=== PATIENT | female | born 1970 | race Caucasian/White ===

== ENCOUNTER → 2019-04-20 00:01 | Outpatient (BNVA) | payer MEDICAID, SELFPAY | PROVIDERS: Family Provider Nurse Practitioner; Visit Provider Internal Medicine | DX: B19.20 Unspecified viral hepatitis C without hepatic coma (principal); Z86.010 Personal history of colon polyps; B18.2 Chronic viral hepatitis C | CPT/HCPCS: 80053; 85025 ==

== ENCOUNTER 2019-05-05 09:38 | Outpatient (CLI) | payer MEDICAID, SELFPAY ==
--- NOTE | 2019-05-05 10:15 | US_ITS ---
WS: [id number] RIGHT UPPER QUADRANT ULTRASOUND HISTORY: HEP C VIRUS INFECTION COMPARISON: 08/02/2009 Liver: 16.0 cm in length. Normal size and echogenicity with no intrahepatic dilatation. No mass. Gallbladder: Status post cholecystectomy. CBD: 4.5 cm Pancreas: Normal size and echogenicity. Right kidney: 8.3 cm in length. Mild atrophy and increased echogenicity of the RIGHT kidney. No obstr uction or mass. Aorta and IVC: Unremarkable. No ascites. US/US liver [id number] IMPRESSION: 1. Status post cholecystectomy. 2. Normal liver. 3. Mild RIGHT renal atrophy.
== END 2019-05-05 09:39 | disposition home or self-care (01) ==
LOC: US 09:39
PROVIDERS: Family Provider Nurse Practitioner; PCP Nurse Practitioner; Visit Provider Internal Medicine
DX: B19.20 Unspecified viral hepatitis C without hepatic coma (principal); N26.1 Atrophy of kidney (terminal); Z90.49 Acquired absence of other specified parts of digestive tract
CPT/HCPCS: 76705

== ENCOUNTER 2019-05-06 07:58 | Day surgery (SDC) | payer MEDICAID, SELFPAY ==
[2019-05-05 08:14] VITALS: BMI 33.3
[2019-05-06 08:19] VITALS: BP 128/94; PULSE 87; RESP 18; TEMP 36.5; O2SAT 96
--- NOTE | 2019-05-06 08:20 | ANES.PREANE2 ---
Pre-Anesthetic Assessment Pre-Anesthetic Assessment: Height/Weight: Height 1.63 m Weight 87.997 kg Temp Pulse Resp BP Pulse Ox 97.7 F 87 18 128/94 96 05/06/19 08:19 05/06/19 08:19 05/06/19 08:19 05/06/19 08:19 05/06/19 08:19 Preop Diagnosis: colon polyps Proposed Procedure: Operation Date: 05/06/19 09:15 Proposed Procedures p Colonoscopy 92121 Z86.010(Not Applicable) - Ilya Uriarte MD Was Beta Mac taken within 24 hours: N/A Last intake: Intake Last Liquid Date 05/05/19 Last Liquid Time 22:00 Last Solid Date 05/04/19 Social: Social History: Tobacco (4cig a day ) Exam: Pre-Anes Outpt Exam: alert, oriented x 3 and regular rate & rhythm Additional Exam Findings (including area of procedure): diminished lung sounds on right Lower. Airway: Submandibular: WNL Cervical ROM: WNL MP: 2 Dentition: False (top and bottom) History/ROS: No significant history except as noted and No significant complaints Pulmonary: Pulmonary: Asthma and COPD CV/HEM: CV/HEM: Arrythmia : : Chronic renal Insufficiency Hepatic: Hepatic: Hepatitis (hepatitis C) GI: GI: GERD Metabolic: Metabolic: None reported Musc/skel: Musc/skel: Lower Back Pain Neuropsych: Neuropsych: Anxiety and Depression Anesthetic Plan: ASA status: 2 Anesthesia: MAC PFSH Anesthesia PFSH: Medical History (Updated 04/20/19 @ 10:38 by Ilya Uriarte MD) Hepatitis C Social History (Updated 04/20/19 @ 10:10 by ANILA Conway) Smoking and tobacco status: current every day smoker Alcohol intake: former Marital status: / History of recent travel: No Current gender identity: Female Data Anesthesia Cardiac Studies: No Data to Display
[2019-05-06] MEDS: sodium chloride 0.9% 1,000 ML 30 ML (08:29)
--- NOTE | 2019-05-06 08:56 | W.PM.OPSUD ---
Surgery/Procedure H&P Update DATE OF PROCEDURE: May 06, 2019 DATE H&P PERFORMED: 04/20/19 PREOP DIAGNOSIS: colon polyps PLANNED PROCEDURE: Operation Date: 05/06/19 09:15 Proposed Procedures p Colonoscopy 02602 Z86.010(Not Applicable) - Ilya Uriarte MD
[2019-05-06 09:46] VITALS: BP 111/68; PULSE 87; RESP 16; TEMP 36.7; O2SAT 97
[2019-05-06 10:01] VITALS: BP 125/78; PULSE 80; RESP 18; TEMP 36.6; O2SAT 99
== END 2019-05-06 10:15 | disposition home or self-care (01) ==
PROVIDERS: Family Provider Nurse Practitioner; PCP Nurse Practitioner; Visit Provider Internal Medicine
PROC: 0DJD8ZZ Inspection of Lower Intestinal Tract, Via Natural or Artificial Opening Endoscopic (ICD-10-PCS; CPT 45378; principal; 2019-05-06 09:15)
DX: Z86.010 Personal history of colon polyps (principal); Z82.49 Family history of ischemic heart disease and other diseases of the circulatory system; Z83.3 Family history of diabetes mellitus; F17.210 Nicotine dependence, cigarettes, uncomplicated; B18.2 Chronic viral hepatitis C; J44.9 Chronic obstructive pulmonary disease, unspecified; K21.9 Gastro-esophageal reflux disease without esophagitis
CPT/HCPCS: 12345; 45378; J2704; J7030

== ENCOUNTER → 2019-05-09 10:57 | Outpatient (BNVA) | payer MEDICAID, SELFPAY | PROVIDERS: Family Provider Nurse Practitioner; PCP Nurse Practitioner; Visit Provider Psychiatry & Neurology Psychiatry | DX: F33.2 Major depressive disorder, recurrent severe without psychotic features (principal); F43.12 Post-traumatic stress disorder, chronic; F17.210 Nicotine dependence, cigarettes, uncomplicated | CPT/HCPCS: 99213 ==

== ENCOUNTER → 2019-05-12 14:05 | Outpatient (BNVA) | payer MEDICAID, SELFPAY | PROVIDERS: Family Provider Nurse Practitioner; PCP Nurse Practitioner; Visit Provider Internal Medicine | DX: B19.20 Unspecified viral hepatitis C without hepatic coma (principal) | CPT/HCPCS: 36415; 87902; 99398 ==

== ENCOUNTER 2019-06-28 10:55 | Outpatient (CLI) | payer MEDICAID, SELFPAY ==
[2019-06-30 12:56] LABS: HEP C RNA Viral Load Quant <1.18 NOT DETECTED Log IU/mL (NOT DETECTED); HEP C RNA Viral Load Quant <15 NOT DETECTED IU/mL (NOT DETECTED)
[2019-09-13 12:07] LABS: Bilirubin Urine Neg (NEGATIVE); Blood Urine Neg (Negative); Glucose Urine UA Norm (Normal); Ketones Urine Negative (Negative); Leukocyte Esterase Urine Negative (Negative); Nitrate Urine Negative (Negative); Protein Urine Neg (Negative); Urine Appearance Clear (CLEAR); Urine Color Straw (Yellow); Urobilinogen Urine Norm (Negative)
[2019-09-13 12:08] LABS: Add Urine Culture? No; Bacteria Urine TRACE; Squamous Epithelial Cell Urine RARE (0-5)
[2019-09-13 12:12] LABS: Albumin Level 4.6 g/dL (3.5-5.2); Anion Gap 15.4 (5-19); Blood Urea Nitrogen 21 mg/dL (6-20); Calcium 10.6 mg/dL (8.5-10.5); Carbon Dioxide 26 mmol/L (22-29); Chloride 103 mmol/L (98-107); Glomerular Filtration Rate 29.9 mL/min (90-130); Glucose 95 mg/dL (65-115); Phosphorus 3.8 mg/dL (2.5-4.5); Potassium 4.4 mmol/L (3.5-5.1); Sodium 140 mmol/L (136-145)
[2019-09-13 12:27] LABS: Creatinine Urine, Random 63 mg/dL (28-217)
[2019-09-13 12:29] LABS: Microalbum Creatinine Ratio Ur 16 mg/dL (0-20); Microalbumin Random Urine 1 ug/dL (0-20)
== END 2019-06-28 10:56 | disposition home or self-care (01) ==
LOC: LAB 10:58
PROVIDERS: Family Provider Nurse Practitioner; PCP Nurse Practitioner; Visit Provider Internal Medicine
DX: B19.20 Unspecified viral hepatitis C without hepatic coma (principal)
CPT/HCPCS: 36415; 87522

== ENCOUNTER 2019-07-29 16:22 | Emergency (ER) | payer MEDICAID, SELFPAY ==
[2019-07-29 17:08] VITALS: BP 129/76; PULSE 76; RESP 18; TEMP 36.7; O2SAT 97; BMI 31.7
[2019-07-29 18:07] LABS: Basophils % 0.4 %; Eosinophils # 0.2 10^3/uL (0.0-0.8); Eosinophils % 2.9 %; Hematocrit 36.2 % (37.0-47.0); Lymphocytes # 3.1 10^3/uL (0.8-4.8); Lymphocytes % 42.7 %; Mean Corpuscular HGB Conc 30.4 g/dL (30.0-36.0); Mean Corpuscular Hemoglobin 27.4 pg (28.0-34.0); Mean Platelet Volume 10.6 fL (7.4-10.4); Monocytes # 0.5 10^3/uL (0.2-0.9); Monocytes % 7.3 %; Neutrophils # 3.4 10^3/uL (1.8-7.7); Neutrophils % 46.6 %; Nucleated Red Blood Cells % 0 %; Platelet Count 249 10^3/cmm (130-400); Red Blood Count 4.02 10^6/uL (4.1-5.3); Red Cell Distribution Width 14.6 % (12.1-15.1); White Blood Count 7.3 10^3/uL (4.0-10.0)
[2019-07-29 18:28] LABS: Alanine Aminotransferase 14 U/L (0-33); Albumin Level 4.3 g/dL (3.5-5.2); Alkaline Phosphatase 127 IU/L (35-105); Anion Gap 14.7 (5-19); Aspartate Amino Transferase 17 U/L (0-32); Blood Urea Nitrogen 23 mg/dL (6-20); Calcium 9.6 mg/dL (8.5-10.5); Carbon Dioxide 27 mmol/L (22-29); Chloride 106 mmol/L (98-107); Globulin 2.3 g/dL (1.3-4.6); Glomerular Filtration Rate 37.1 mL/min (90-130); Glucose 94 mg/dL (65-115); Magnesium 2.2 mg/dL (1.7-2.3); Osmolality Calculated 294 mOsm/kg (285-295); Phosphorus 3.1 mg/dL (2.5-4.5); Potassium 3.7 mmol/L (3.5-5.1); Sodium 144 mmol/L (136-145); Total Bilirubin 0.2 mg/dL (0.15-1.2); Total Protein 6.6 g/dL (6.6-8.7)
== END 2019-07-29 18:45 | disposition left against medical advice (07) ==
LOC: ER 17:19
PROVIDERS: Physician Assistant; Emergency Provider Emergency Medicine; PCP Nurse Practitioner
DX: Z53.21 Procedure and treatment not carried out due to patient leaving prior to being seen by health care provider (principal)
CPT/HCPCS: 36415; 80053; 83735; 84100; 85025; 99281

== ENCOUNTER → 2019-08-08 08:29 | Outpatient (BNVA) | payer MEDICAID, SELFPAY | PROVIDERS: PCP Nurse Practitioner; Visit Provider Psychiatry & Neurology Psychiatry | DX: F33.2 Major depressive disorder, recurrent severe without psychotic features (principal); F43.12 Post-traumatic stress disorder, chronic; F17.200 Nicotine dependence, unspecified, uncomplicated; F12.21 Cannabis dependence, in remission; F15.21 Other stimulant dependence, in remission | CPT/HCPCS: 99213 ==

== ENCOUNTER 2019-09-13 11:27 | Outpatient (CLI) | payer MEDICAID, SELFPAY | END 2019-09-13 11:28 | disposition home or self-care (01) | LOC: LAB 11:31 | PROVIDERS: PCP Nurse Practitioner; Visit Provider Internal Medicine Nephrology | DX: N18.4 Chronic kidney disease, stage 4 (severe) (principal) | CPT/HCPCS: 36415; 80069; 81001; 82044 ==

== ENCOUNTER → 2019-10-31 09:48 | Outpatient (BNVA) | payer MEDICAID, SELFPAY | PROVIDERS: PCP Nurse Practitioner; Visit Provider Psychiatry & Neurology Psychiatry | DX: F43.12 Post-traumatic stress disorder, chronic (principal); F33.2 Major depressive disorder, recurrent severe without psychotic features; F15.21 Other stimulant dependence, in remission; F12.21 Cannabis dependence, in remission; F17.200 Nicotine dependence, unspecified, uncomplicated; F41.1 Generalized anxiety disorder | CPT/HCPCS: 99213 ==

== ENCOUNTER → 2020-02-14 07:51 | Outpatient (BNVA) | payer MEDICAID, SELFPAY | PROVIDERS: PCP Nurse Practitioner; Visit Provider Psychiatry & Neurology Psychiatry | DX: F43.12 Post-traumatic stress disorder, chronic (principal); F33.2 Major depressive disorder, recurrent severe without psychotic features; F15.21 Other stimulant dependence, in remission; F12.21 Cannabis dependence, in remission; F17.200 Nicotine dependence, unspecified, uncomplicated | CPT/HCPCS: 74018; 80053; 81000; 85025; 99214 ==

== ENCOUNTER 2020-02-16 09:47 | Outpatient (CLI) | payer MEDICAID, SELFPAY ==
--- NOTE | 2020-02-16 09:52 | XRR_ITS ---
PROCEDURE INFORMATION: Exam: XR Abdomen, 1 View Exam date and time: 02/16/2020 9:53 AM Age: 49 years old Clinical indication: Condition or disease; Kidney or ureter condition; Other: Stone-not specified; Prior surgery; Surgery type: Choley, c section TECHNIQUE: Imaging protocol: XR of the abdomen. Views: Frontal supine view of the abdomen. 1 View. COMPARISON: CR XR KUB [id number] 02/14/2020 12:07 PM FINDINGS: Gastrointestinal tract: Normal. No bowel dilation. There is moderate colonic fecal stasis present in the ascending colon transverse colon, and sigmoid colon. Evidence of cholecystectomy is seen Organs: There is a 4.6 mm caliceal stone in the lower pole collecting system of the left kidney Bones/joints: There is osteoarthritis in the lumbar spine. Metallic arthroplasty is present in the right hip. XR/XR KUB [id number] IMPRESSION: 1. No acute GI abnormality. 2. Moderate colonic fecal stasis 3. Metallic right hip arthroplasty in good position 4. Lumbar spine osteoarthritis
== END 2020-02-16 09:48 | disposition home or self-care (01) ==
LOC: RAD 09:49
PROVIDERS: PCP Nurse Practitioner; Visit Provider Urology
DX: N20.0 Calculus of kidney (principal); K59.89 Other specified functional intestinal disorders; Z96.641 Presence of right artificial hip joint; M47.816 Spondylosis without myelopathy or radiculopathy, lumbar region
CPT/HCPCS: 74018; 81003

== ENCOUNTER 2020-02-27 11:56 | Outpatient (CLI) | payer MEDICAID, SELFPAY ==
[2020-02-27 12:40] LABS: Basophils % 0.7 %; Eosinophils # 0.2 10^3/uL (0.0-0.8); Eosinophils % 2.5 %; Hematocrit 40.5 % (37.0-47.0); Hemoglobin 12.3 g/dL (11.5-15.3); Lymphocytes # 2.2 10^3/uL (0.8-4.8); Lymphocytes % 37.5 %; Mean Corpuscular HGB Conc 30.4 g/dL (30.0-36.0); Mean Corpuscular Hemoglobin 28.1 pg (28.0-34.0); Mean Corpuscular Volume 92.5 fL (81-99); Mean Platelet Volume 11.1 fL (7.4-10.4); Monocytes # 0.4 10^3/uL (0.2-0.9); Neutrophils # 3.07 10^3/uL (1.8-7.7); Neutrophils % 52.1 %; Nucleated Red Blood Cells % 0 %; Platelet Count 229 10^3/cmm (130-400); Red Blood Count 4.38 10^6/uL (4.1-5.3); Red Cell Distribution Width 14.6 % (12.1-15.1); White Blood Count 5.9 10^3/uL (4.0-10.0)
[2020-02-27 13:12] LABS: Calcium 9.7 mg/dL (8.5-10.5); Parathyroid Hormone 64.5 pg/mL (15-65)
[2020-02-27 13:13] LABS: 25 Hydroxy Vitamin D 43 ng/mL (30-100); Albumin Level 4.2 g/dL (3.5-5.2); Blood Urea Nitrogen 12 mg/dL (6-20); Calcium 9.8 mg/dL (8.5-10.5); Carbon Dioxide 27 mmol/L (22-29); Chloride 105 mmol/L (98-107); Glomerular Filtration Rate 34.3 mL/min (90-130); Glucose 72 mg/dL (65-115); Phosphorus 3.1 mg/dL (2.5-4.5); Sodium 141 mmol/L (136-145)
[2020-02-27 13:15] LABS: Anion Gap 13.1 (5-19); Potassium 4.1 mmol/L (3.5-5.1)
== END 2020-02-27 11:57 | disposition home or self-care (01) ==
LOC: LAB 11:58
PROVIDERS: PCP Family Medicine; Visit Provider Nurse Practitioner Family
DX: N18.4 Chronic kidney disease, stage 4 (severe) (principal)
CPT/HCPCS: 36415; 80069; 82306; 82310; 83970; 85025

== ENCOUNTER → 2020-03-05 14:56 | Outpatient (BNVA) | payer MEDICAID, SELFPAY | PROVIDERS: PCP Family Medicine; Visit Provider Internal Medicine | DX: B19.20 Unspecified viral hepatitis C without hepatic coma (principal) | CPT/HCPCS: 87522 ==

== ENCOUNTER → 2020-05-08 08:55 | Outpatient (BNVA) | payer MEDICAID, SELFPAY | PROVIDERS: PCP Family Medicine; Visit Provider Psychiatry & Neurology Psychiatry | DX: F43.12 Post-traumatic stress disorder, chronic (principal); F33.2 Major depressive disorder, recurrent severe without psychotic features; F17.200 Nicotine dependence, unspecified, uncomplicated; F12.21 Cannabis dependence, in remission; F15.21 Other stimulant dependence, in remission | CPT/HCPCS: 99213 ==

== ENCOUNTER → 2020-08-13 15:14 | Outpatient (BNVA) | payer MEDICAID, SELFPAY | PROVIDERS: PCP Family Medicine; Visit Provider Psychiatry & Neurology Psychiatry | DX: F33.2 Major depressive disorder, recurrent severe without psychotic features (principal); F43.12 Post-traumatic stress disorder, chronic; F15.21 Other stimulant dependence, in remission; F12.21 Cannabis dependence, in remission; F17.200 Nicotine dependence, unspecified, uncomplicated | CPT/HCPCS: 99213 ==

== ENCOUNTER 2020-08-22 13:40 | Outpatient (CLI) | payer MEDICAID, SELFPAY ==
[2020-08-22 14:20] LABS: Basophils % 0.5 %; Eosinophils # 0.2 10^3/uL (0.0-0.8); Eosinophils % 2.3 %; Hematocrit 39.3 % (37.0-47.0); Hemoglobin 12.2 g/dL (11.5-15.3); Lymphocytes # 2.5 10^3/uL (0.8-4.8); Lymphocytes % 38.2 %; Mean Corpuscular Hemoglobin 28.7 pg (28.0-34.0); Mean Corpuscular Volume 92.5 fL (81-99); Mean Platelet Volume 11.3 fL (7.4-10.4); Monocytes # 0.4 10^3/uL (0.2-0.9); Monocytes % 6.5 %; Neutrophils # 3.37 10^3/uL (1.8-7.7); Neutrophils % 52.2 %; Nucleated Red Blood Cells % 0 %; Platelet Count 213 10^3/cmm (130-400); Red Blood Count 4.25 10^6/uL (4.1-5.3); Red Cell Distribution Width 14.9 % (12.1-15.1); White Blood Count 6.5 10^3/uL (4.0-10.0)
[2020-08-22 14:50] LABS: Albumin Level 4.1 g/dL (3.5-5.2); Anion Gap 12.8 (5-19); Blood Urea Nitrogen 10 mg/dL (6-20); Calcium 9.1 mg/dL (8.5-10.5); Carbon Dioxide 27 mmol/L (22-29); Chloride 105 mmol/L (98-107); Glomerular Filtration Rate 43.4 mL/min (90-130); Glucose 109 mg/dL (65-115); Phosphorus 2.8 mg/dL (2.5-4.5); Potassium 3.8 mmol/L (3.5-5.1); Sodium 141 mmol/L (136-145)
[2020-08-22 14:52] LABS: Calcium 9.2 mg/dL (8.5-10.5)
[2020-08-22 15:07] LABS: Creatinine Urine, Random 38 mg/dL (28-217)
[2020-08-22 15:09] LABS: Microalbum Creatinine Ratio Ur 26 mg/dL (0-20); Microalbumin Random Urine 1 ug/dL (0-20)
[2020-08-22 17:46] LABS: Parathyroid Hormone 52.7 pg/mL (15-65)
== END 2020-08-22 13:41 | disposition home or self-care (01) ==
LOC: LAB 13:47
PROVIDERS: PCP Family Medicine; Visit Provider Internal Medicine Nephrology
DX: N18.32 Chronic kidney disease, stage 3b (principal)
CPT/HCPCS: 80069; 82044; 82310; 83970; 85025

== ENCOUNTER → 2020-11-08 09:08 | Outpatient (BNVA) | payer MEDICAID, SELFPAY | PROVIDERS: PCP Family Medicine; Visit Provider Psychiatry & Neurology Psychiatry | DX: F43.12 Post-traumatic stress disorder, chronic (principal); F33.2 Major depressive disorder, recurrent severe without psychotic features; F12.21 Cannabis dependence, in remission; F15.21 Other stimulant dependence, in remission; F17.200 Nicotine dependence, unspecified, uncomplicated | CPT/HCPCS: 99213 ==

== ENCOUNTER → 2021-02-07 08:49 | Outpatient (BNVA) | payer MEDICAID, SELFPAY | PROVIDERS: PCP Family Medicine; Visit Provider Psychiatry & Neurology Psychiatry | DX: F43.12 Post-traumatic stress disorder, chronic (principal); F33.2 Major depressive disorder, recurrent severe without psychotic features; F17.210 Nicotine dependence, cigarettes, uncomplicated; F15.21 Other stimulant dependence, in remission; F12.21 Cannabis dependence, in remission; F17.200 Nicotine dependence, unspecified, uncomplicated | CPT/HCPCS: 99213 ==

== ENCOUNTER 2021-02-18 09:13 | Outpatient (CLI) | payer MEDICAID, SELFPAY ==
--- NOTE | 2021-02-18 09:15 | XR_ITS ---
WS: [id number] XR KUB [id number] REASON FOR EXAM: KIDNEY STONE FINDINGS: Calculus/calculi in the lower pole of the left kidney unchanged compared to the previous examination of 02/16/2020. This calculus was present on a CT scan of the abdomen 09/19/2016, unchanged. No other urinary tract calculi. Status post cholecystectomy. No other significant abdominal abnormality. Pelvis unremarkable. XR/XR KUB [id number] IMPRESSION: Stable calculus lower pole left kidney.
== END 2021-02-18 09:14 | disposition home or self-care (01) ==
LOC: RAD 09:15
PROVIDERS: PCP Family Medicine; Visit Provider Urology
DX: N20.0 Calculus of kidney (principal); R10.9 Unspecified abdominal pain
CPT/HCPCS: 74018; 81003

== ENCOUNTER 2021-02-27 13:33 | Outpatient (CLI) | payer MEDICAID, SELFPAY ==
--- NOTE | 2021-02-27 13:37 | XR_ITS ---
WS: [id number] LUMBAR SPINE TECHNIQUE: 3 views of the lumbar spine CLINICAL INFORMATION: M54.50 - Low back pain, unspecified COMPARISON: None. FINDINGS: Five iuf-kuh-jplymio lumbar vertebral bodies. Mild lumbar curve convex right. Cholecystectomy clips. Moderate spondylitic changes. Postoperative changes right KIEL. Disc space narrowing worse L4-L5 and L 5-S1 with hypertrophic changes. Aortic calcification. No acute compression fractures. Moderate facet arthropathy L5-S1. Moderate L5-S1 bony foraminal narrowing. XR/XR lumbar spine 2-3V* [id number] IMPRESSION: 1. Mild lumbar curve convex right. No acute compression fractures. 2. Disc space narrowing worse L4-L5 and L5-S1 with hypertrophic changes. 3. Moderate L5-S1 bony foraminal narrowing.
--- NOTE | 2021-02-27 13:37 | XR_ITS ---
WS: [id number] HIP WITH PELVIS RIGHT TECHNIQUE: 3 views of the right hip with pelvis CLINICAL INFORMATION: M25.551 - Pain in right hip COMPARISON: None. FINDINGS: Postoperative changes right KIEL. Hardware appears well seated. Normal femoral shaft. Normal pubic mandy i. No acute fractures. No evidence of hardware loosening. XR/XR hip RT 2-3V wo/w pel* [id number] IMPRESSION: Satisfactory right KIEL. Tonnis classification: NA
== END 2021-02-27 13:34 | disposition home or self-care (01) ==
PROVIDERS: PCP Family Medicine; Visit Provider Family Medicine
DX: M25.551 Pain in right hip (principal); M54.50 Low back pain, unspecified; Z96.641 Presence of right artificial hip joint
CPT/HCPCS: 72100; 73502

== ENCOUNTER → 2021-05-24 07:23 | Outpatient (BNVA) | payer MEDICAID, SELFPAY | PROVIDERS: PCP Family Medicine; Visit Provider Psychiatry & Neurology Psychiatry | DX: F43.12 Post-traumatic stress disorder, chronic (principal); F33.2 Major depressive disorder, recurrent severe without psychotic features; F12.21 Cannabis dependence, in remission; F17.200 Nicotine dependence, unspecified, uncomplicated; F15.21 Other stimulant dependence, in remission | CPT/HCPCS: 99213 ==

== ENCOUNTER 2021-05-28 14:36 | Outpatient (CLI) | payer MEDICAID, SELFPAY ==
[2021-05-28] MEDS: iodixanol 320 mg/mL 100mL Btl IV (14:54)
--- NOTE | 2021-05-28 15:00 | CT_ITS ---
WS: [id number] CT LUMBAR SPINE WITH CONTRAST. HISTORY: M54.50 - Low back pain, unspecified Technique: All CT scans at [facility] use at least one of these dose optimization techniques: automated exposure control; mA and/or kV adjustment per patient size (includes targeted exams where dose is matched to clinical indication); or iterative reconstruction. DLP: 1276.90 mGy.cm COMPARISON: Lumbar spine radiograph 02/27/2021. Contrast: Posterior alignment is normal. Advanced degenerative disc disease and narrowing and vacuum disc pheno mariusz at L4-5 and L5-S1. No fractures. No areas of abnormal enhancement. No soft tissue tumor or mass . L2-3: Mild asymmetric disc bulging with no high-grade stenosis. L3-4: Marked annular disc bulging with asymmetric bulging. Disc contact on the ventral thecal sac. Th ere is mild central and subarticular recess narrowing. L4-5: Diffuse annular disc bulging with osteophytic ridging. Osteophytes extend into the foramen bila terally. Significant osteophyte encroachment by up to 8 mm into the foramen bilaterally. Osteophytes contribute to mild bilateral foraminal stenosis. L5-S1: Diffuse osteophytic ridging. Osteophytes extend into the foramina bilaterally but greatest on the LEFT mild bilateral foraminal stenosis, RIGHT greater than LEFT. Well-circumscribed cyst upper pole LEFT kidney measures 2.6 cm. Mild atherosclerosis of the visualize d abdominal aorta. There are a few adjacent small lymph nodes. No adenopathy. CT/CT lumbar spine w con [id number] IMPRESSION: 1. Advanced degenerative disc disease at L4-5 and L5-S1. 2. Significant osteophyte encroachment into the foramen of L4-5 and L5-S1 with encroachment upon the nerve roots. 3. LEFT renal cyst. 4. No enhancing masses identified.
== END 2021-05-28 14:37 | disposition home or self-care (01) ==
LOC: RAD 14:38
PROVIDERS: PCP Family Medicine; Visit Provider Family Medicine
DX: M51.36 Other intervertebral disc degeneration, lumbar region (principal); M51.37 Other intervertebral disc degeneration, lumbosacral region; Q61.00 Congenital renal cyst, unspecified
CPT/HCPCS: 72132

== ENCOUNTER → 2021-06-11 13:40 | Outpatient (BNVA) | payer MEDICAID, SELFPAY | PROVIDERS: PCP Family Medicine; Visit Provider Orthopaedic Surgery | DX: M48.062 Spinal stenosis, lumbar region with neurogenic claudication (principal); Z98.890 Other specified postprocedural states | CPT/HCPCS: 99203; 99204; 99213; 99214 ==

== ENCOUNTER → 2021-06-17 10:30 | Outpatient (BNVA) | payer MEDICAID, SELFPAY | PROVIDERS: PCP Family Medicine; Referring Provider Orthopaedic Surgery; Visit Provider Anesthesiology Pain Medicine | DX: M48.062 Spinal stenosis, lumbar region with neurogenic claudication (principal); M51.16 Intervertebral disc disorders with radiculopathy, lumbar region; M51.17 Intervertebral disc disorders with radiculopathy, lumbosacral region; M79.604 Pain in right leg; M79.605 Pain in left leg; Z87.891 Personal history of nicotine dependence | CPT/HCPCS: 99204 ==

== ENCOUNTER → 2021-07-04 13:12 | Outpatient (BNVA) | payer MEDICAID, SELFPAY | PROVIDERS: PCP Family Medicine; Visit Provider Anesthesiology Pain Medicine | DX: M54.16 Radiculopathy, lumbar region (principal); M48.062 Spinal stenosis, lumbar region with neurogenic claudication; Z87.891 Personal history of nicotine dependence | CPT/HCPCS: 64483; 64484; J1100; J3490 ==

== ENCOUNTER → 2021-07-18 09:44 | Outpatient (BNVA) | payer MEDICAID, SELFPAY | PROVIDERS: PCP Family Medicine; Visit Provider Anesthesiology Pain Medicine | DX: M48.062 Spinal stenosis, lumbar region with neurogenic claudication (principal); M51.16 Intervertebral disc disorders with radiculopathy, lumbar region; M47.816 Spondylosis without myelopathy or radiculopathy, lumbar region; M79.604 Pain in right leg; M79.605 Pain in left leg; Z87.891 Personal history of nicotine dependence | CPT/HCPCS: 99214 ==

== ENCOUNTER 2021-07-22 16:35 | Outpatient (CLI) | payer MEDICAID, SELFPAY ==
--- NOTE | 2021-07-22 16:51 | MR_ITS ---
WS: [id number] MRI LUMBAR SPINE NONCONTRAST HISTORY: M54.50 - Low back pain, unspecified COMPARISON: CT 05/28/2021 TECHNIQUE: Sagittal and axial multisequence imaging is submitted. Marked thoracic curvature and scoliosis. Mild straightening of the normal lumbar lordosis. Severe degenerative disc disease at L4-5 and moderate at L5-S1. No fracture or marrow edema. Conus terminates normally at L1-2 disc level. L1-L2: Normal. L2-L3: Normal. L3-L4: Moderate diffuse annular disc bulging with moderate ligamentum flavum hypertrophy and facet ar thritis. Diffuse annular disc bulging is encroaching into the foramina. There is mild encroachment an d narrowing of the subarticular recesses. No significant foraminal stenosis. L4-L5: Marked annular disc bulging and osteophytic ridging. Disc and osteophyte encroachment into the subarticular recesses and bilateral foramina. There is mild central, bilateral subarticular recess a nd foraminal stenosis. Most significant encroachment upon the traversing L5 nerve roots bilaterally. Moderate ligamentum flavum hypertrophy and facet arthritis. L5-S1: Diffuse asymmetric disc bulging and osteophytic ridging. Disc and osteophyte encroachment upon the central canal and foramina. Focal LEFT subarticular and foraminal disc protrusion resulting in s lightly greater stenosis on the LEFT. Mild bilateral foraminal narrowing with disc contacting the und ersurface of the exiting L5 nerve roots. LEFT renal cyst 1.8 cm. MR/MR lumbar spine wo con* [id number] IMPRESSION: 1. Severe degenerative disc disease at L4-5 and moderate at L5-S1. 2. Mild central, bilateral subarticular recess and foraminal stenosis at L4-5. Disc and osteophyte encroachment upon the traversing L5 nerve roots. 3. Bilateral mild foraminal stenosis with disc contacting the undersurface of the exiting L5 nerve roots at the L5-S1 level. Diffuse annular disc bulging. 4. No high-grade central stenosis.
== END 2021-07-22 16:36 | disposition home or self-care (01) ==
LOC: RAD 16:35
PROVIDERS: PCP Family Medicine; Visit Provider Orthopaedic Surgery
DX: M54.50 Low back pain, unspecified (principal); M51.37 Other intervertebral disc degeneration, lumbosacral region
CPT/HCPCS: 72148

== ENCOUNTER → 2021-07-29 14:23 | Outpatient (BNVA) | payer MEDICAID, SELFPAY | PROVIDERS: PCP Family Medicine; Visit Provider Anesthesiology Pain Medicine | DX: M48.062 Spinal stenosis, lumbar region with neurogenic claudication (principal); Z87.891 Personal history of nicotine dependence; M47.816 Spondylosis without myelopathy or radiculopathy, lumbar region | CPT/HCPCS: 64493; 64494; 64495; J3490 ==

== ENCOUNTER → 2021-08-13 09:38 | Outpatient (BNVA) | payer MEDICAID, SELFPAY | PROVIDERS: PCP Family Medicine; Visit Provider Anesthesiology Pain Medicine | DX: M48.062 Spinal stenosis, lumbar region with neurogenic claudication (principal); M51.16 Intervertebral disc disorders with radiculopathy, lumbar region; M47.816 Spondylosis without myelopathy or radiculopathy, lumbar region; M79.604 Pain in right leg; M79.605 Pain in left leg; Z87.891 Personal history of nicotine dependence | CPT/HCPCS: 99213 ==

== ENCOUNTER → 2021-08-20 07:18 | Outpatient (BNVA) | payer MEDICAID, SELFPAY | PROVIDERS: PCP Family Medicine; Visit Provider Psychiatry & Neurology Psychiatry | DX: F43.12 Post-traumatic stress disorder, chronic (principal); F33.2 Major depressive disorder, recurrent severe without psychotic features; F12.21 Cannabis dependence, in remission; F17.200 Nicotine dependence, unspecified, uncomplicated; H10.9 Unspecified conjunctivitis; F15.21 Other stimulant dependence, in remission | CPT/HCPCS: 99214 ==

== ENCOUNTER 2021-08-20 14:59 | Outpatient (CLI) | payer MEDICAID, SELFPAY ==
[2021-08-20 18:32] LABS: Albumin Level 4.3 g/dL (3.5-5.2); Anion Gap 15.6 (5-19); Blood Urea Nitrogen 15 mg/dL (6-20); Calcium 9.7 mg/dL (8.5-10.5); Carbon Dioxide 25 mmol/L (22-29); Chloride 103 mmol/L (98-107); Glomerular Filtration Rate 43.2 mL/min (90-130); Glucose 86 mg/dL (65-115); Phosphorus 3.5 mg/dL (2.5-4.5); Potassium 3.6 mmol/L (3.5-5.1); Sodium 140 mmol/L (136-145)
[2021-08-20 18:45] LABS: Parathyroid Hormone 49.2 pg/mL (15-65)
[2021-08-20 18:49] LABS: Calcium 9.6 mg/dL (8.5-10.5)
[2021-08-26 09:47] LABS: Vit D 1,25 (Oh)2, Total 28 pg/mL (18-72); Vit D2 1,25 (Oh)2 <8 pg/mL; Vit D3 1,25 (Oh)2 28 pg/mL
== END 2021-08-20 15:00 | disposition home or self-care (01) ==
LOC: LAB 15:04
PROVIDERS: PCP Family Medicine; Visit Provider Internal Medicine Nephrology
DX: N18.31 Chronic kidney disease, stage 3a (principal)
CPT/HCPCS: 36415; 80069; 82310; 82652; 83970; 86140

== ENCOUNTER → 2021-08-29 08:42 | Outpatient (BNVA) | payer MEDICAID, SELFPAY | PROVIDERS: PCP Family Medicine; Visit Provider Orthopaedic Surgery | DX: M48.062 Spinal stenosis, lumbar region with neurogenic claudication (principal) | CPT/HCPCS: 99214 ==

== ENCOUNTER → 2021-10-01 16:56 | Outpatient (BNVA) | payer MEDICAID, SELFPAY | PROVIDERS: PCP Family Medicine; Visit Provider Family Medicine | DX: Z01.818 Encounter for other preprocedural examination (principal) | CPT/HCPCS: 80053; 85025 ==

== ENCOUNTER → 2021-10-02 09:45 | Outpatient (BNVA) | payer MEDICAID, SELFPAY | PROVIDERS: PCP Family Medicine; Visit Provider Family Medicine | DX: Z01.818 Encounter for other preprocedural examination (principal) | CPT/HCPCS: 71046 ==

== ENCOUNTER 2021-10-18 14:22 | Inpatient (IN) | payer MEDICAID, SELFPAY ==
[2021-10-15 10:31] VITALS: BMI 27.9
--- NOTE | 2021-10-15 13:44 | ANES.PREANE2 ---
Pre-Anesthetic Assessment Height/Weight: Height 1.63 m Weight 73.936 kg Preop Diagnosis: facet arthropaty, DDD with neurogenic claudication Operation Date: 10/18/21 08:30 Proposed Procedures p Posterior Lumbar Interbody Fusion L3 TO PELVIC PLIF @L5-S1 DECOM L3-S1 [id number](Not Applicable) - DO reena Henson Lumbar Spine Decompression(Not Applicable) - Shubham Christianson DO Familial anesthetic complications: none Was Beta Mac taken within 24 hours: N/A Was Clonidine taken within 24 hours: N/A Social Tobacco Exam alert, oriented x 3 and regular rate & rhythm wheezing b/l denies recent URI/LRI Airway Submandibular: within normal limits Cervical ROM: within normal limits Mallampati: Class I Comments: Comments: missing teeth Pulmonary Chronic Obstructive Pulmonary Disease and Sleep Apnea (uses CPAP) CV/HEM METS > 4 Chronic Renal Insufficiency Urolithiasis Hepatic Hepatitis (C) GI Gastroesophageal Reflux Disease (WC) and Hiatal Hernia Musc/skel Lower Back Pain and Osteoarthritis/DJD Neuropsych Neuropathy PTSD Hx of amphetamine, marijuana abuse Anesthetic Plan ASA status: 3 Anesthesia: Anesthesia Evaluation and General Other: We discussed risk and benefits of general anesthesia including PONV, sore throat (sometimes severe), corneal abrasion, positioning and peripheral nerve injuries, life threatening allergic reaction, post operative ICU admission requiring prolonged intubation, aspiration, stroke, heart attack, , blindness, and rare incidences of recall. Patient consents to proceed with general anesthesia. Plan GETA, 2 PIV, arterial line Risk of > 500 ml blood loss (7ml/kg in children): No Medications/Allergies Home Medications Medication Instructions Recorded Confirmed Last Taken Type albuterol sulfate 90 mcg/actuation 2 puff inhalation Q6H PRN 04/03/21 10/15/21 Unknown Rx aerosol inhaler (ProAir HFA) shortness of breath or wheezing #18 grams naloxone 4 mg/actuation nasal spray 4 mg intranasal Q2M PRN opioid 05/23/21 10/15/21 Unknown Rx overdose #2 ea cetirizine 10 mg tablet (Zyrtec) 10 mg PO DAILY 30 days #30 tabs 07/03/21 10/15/21 Unknown Rx montelukast 10 mg tablet 10 mg PO DAILY #30 tabs 07/03/21 10/15/21 Unknown Rx (Singulair) omeprazole 40 mg capsule,delayed 40 mg PO DAILY #30 caps 07/03/21 10/15/21 Unknown Rx release bupropion HCl 150 mg tablet,12 hr 150 mg PO BID #60 tabs 08/20/21 10/15/21 Unknown Rx sustained-release (Wellbutrin SR) lamotrigine 150 mg tablet 150 mg PO BID #60 tabs 08/20/21 10/15/21 Unknown Rx quetiapine 100 mg tablet (Seroquel) 100 mg PO .HS #30 tabs 08/20/21 10/15/21 Unknown Rx acetaminophen 300 mg-codeine 60 mg 1 tab PO Q8H #45 tabs 08/22/21 10/15/21 Unknown Rx tablet ergocalciferol (vitamin D2) 50 mcg 50 mcg PO DAILY 09/26/21 10/15/21 Unknown History (2,000 unit) capsule Allergies Allergy/AdvReac Type Severity Reaction Status Date / Time escitalopram [From Lexapro] AdvReac Intermediate ALGY-Hives Verified 10/15/21 10:28 [facility] Anesthesia Medical History Chronic kidney disease DDD (degenerative disc disease) Environmental and seasonal allergies GERD (gastroesophageal reflux disease) Heart murmur Hepatitis C Hiatal hernia Kidney stone Left anterior knee pain Psychiatric care Scoliosis Urolithiasis Vaginal atrophy Surgical History History of appendectomy History of cholecystectomy History of esophagogastroduodenoscopy (EGD) 08/29/2016 History of hip replacement, total right History of hysterectomy Family History Mother , AT AGE 71 Cancer LUNG Father Diabetes CHF (congestive heart failure) Other Heart disease Psychiatric illness Social History Smoking and tobacco status: former smoker Quit status (tobacco): has quit using tobacco Second hand smoke exposure: No Alcohol intake: former Marital status: / Current occupational status: disabled History of recent travel: No Current gender identity: Female Data Anesthesia Cardiac Studies: No Data to Display
[2021-10-18] VITALS (19 sets, daily range): BP systolic 123–196; BP diastolic 77–102; PULSE 79–124; RESP 12–18; TEMP 36.4–37; O2SAT 92–99; BMI 27.9
--- NOTE | 2021-10-18 | SCC_ITS ---
Procedure done: 1. L5/S1 Interbody fusion with posterolateral fusion 2. Instrumentation L3 to S1 3. Lumbopelvic fixation 4. Posterior fusion L3 to Pelvis 5. Cage at L5/S1 6. Laminectomy L3/4 with partial facetectomies 7. Laminectomy L4/5 with partial facetectomies 8. Laminectomy L5/S1 with partial facetectomies 9. use of autograft from same incision 10. allograft 11. Bone marrow aspirate from right iliac crest 12. Use of computer navigation/stereotactic for spine 18 seconds of fluoroscopic guidance, for a cumulative dose of 50.1 mGy, was provided to Dr. Christianson by the radiology department. C-arm images of the lumbar spine were saved for the patient's permanent record. [facility]
--- NOTE | 2021-10-18 | XR_ITS ---
WS: [id number] XR lumbar spine 2-3V* [id number] REASON FOR EXAM: plif FINDINGS: Posterior decompressive laminectomy with pedicle screw placements L3-S1 with bilateral oblique sacral screws. Interbody fusion device at L5-S1. Surgical appliances are in proper position and alignment. XR/XR lumbar spine 2-3V* [id number] IMPRESSION: Lumbar spine in surgery as above.
--- NOTE | 2021-10-18 10:02 | P.ANESUD_ITS ---
Pre-Anesthetic Update Pre-Anesthetic Assessment: Date of Surgery/Procedure: 10/18/21 Preop Vivian gnosis: Lumbar stenosis w/Neurogenic Claudication Proposed Procedure: Operation Date: 10/18/21 11:10 Proposed Procedures p Posterior Lumbar Interbody Fusion L3 TO PELVIC PLIF @L5-S1 DECOM L3-S1 [id number](Not Applicable) - Shubham Christianson, DO s Lumbar Spine Decompression(Not Applicable) - Shubham Christianson, DO Any changes to Pre-Anesthetic Assessment?: No Last Intake: Intake Last Liquid Date 10/17/21 Last Liquid Time 23:00 Last Solid Date 10/17/21 Last Solid Time 23:00 Vitals: Temperature 98.6 F 10/18/21 09:47 Pulse Rate 84 10/18/21 09:47 Respiratory Rate 18 10/18/21 09:47 Blood Pressure 130/82 10/18/21 09:47 Blood Pressure Silvia n 98 10/18/21 09:47 Pulse Oximetry 98 10/18/21 09:47 Oxygen Delivery Me thod 10/18/21 09:47 Exam: Pre-Anes Outpt Exam: alert, oriented x 3, clear to auscultation bilaterally and regular rate & rhythm Cardiac Studies: No Data to Display
[2021-10-18] MEDS: sodium chloride 0.9% 1,000 ML 30 ML IV (10:22)
--- NOTE | 2021-10-18 10:24 | PM.HP ---
Providers/Chief Complaint Primary Care Provider: Minnie Leal MD Chief Complaint: l3 pelvic psf plif l5/s1 decom l3/s1 History of Present Illness Elisabeth Nowak is a 51 year old female She rates her pain 4/10 today. She describes pain that travels into her left posterior lower extremity. She has tried Left L3, 4, 5, diagnostic MBBs with relief for a few hours. She feels her pain is coming back and is not constant. She has received Right L4 and L5 transforaminal VERO with good relief. She uses tylenol #4 at night with moderate relief. Review of Systems Const: Denies: fever(s) or chills ENMT: Denies: throat pain, ear or mastoid pain, nasal discharge or nasal congestion Resp: Denies: dyspnea, productive cough, wheezing or chest congestion GI: Denies: abdominal pain, GI cramping, change in bowel habits or hematochezia : Denies: dysuria or urinary frequency Musc: Denies: extremity pain or extremity swelling Skin/Breast: Denies: rash, pruritus, erythema or sores Neuro: Denies: weakness in extremities or difficulty walking Medications/Allergies Home Medications Medication Instructions Recorded Confirmed Last Taken Type albuterol sulfate 90 mcg/actuation 2 puff inhalation Q6H PRN 04/03/21 10/18/21 10/17/21 Rx aerosol inhaler (ProAir HFA) shortness of breath or wheezing #18 grams naloxone 4 mg/actuation nasal spray 4 mg intranasal Q2M PRN opioid 05/23/21 10/18/21 10/17/21 Rx overdose #2 ea cetirizine 10 mg tablet (Zyrtec) 10 mg PO DAILY 30 days #30 tabs 07/03/21 10/18/21 10/17/21 Rx montelukast 10 mg tablet 10 mg PO DAILY #30 tabs 07/03/21 10/18/21 10/17/21 Rx (Singulair) omeprazole 40 mg capsule,delayed 40 mg PO DAILY #30 caps 07/03/21 10/18/21 10/18/21 Rx release bupropion HCl 150 mg tablet,12 hr 150 mg PO BID #60 tabs 08/20/21 10/18/21 10/17/21 Rx sustained-release (Wellbutrin SR) lamotrigine 150 mg tablet 150 mg PO BID #60 tabs 08/20/21 10/18/21 10/17/21 Rx quetiapine 100 mg tablet (Seroquel) 100 mg PO .HS #30 tabs 08/20/21 10/18/21 10/17/21 Rx acetaminophen 300 mg-codeine 60 mg 1 tab PO Q8H #45 tabs 08/22/21 10/18/21 10/17/21 Rx tablet ergocalciferol (vitamin D2) 50 mcg 50 mcg PO DAILY 09/26/21 10/18/21 10/17/21 History (2,000 unit) capsule Allergies Allergy/AdvReac Type Severity Reaction Status Date / Time escitalopram [From Lexapro] AdvReac Intermediate ALGY-Hives Verified 10/18/21 09:47 PFSH Acute PFSH: Medical History Chronic kidney disease DDD (degenerative disc disease) Environmental and seasonal allergies GERD (gastroesophageal reflux disease) Heart murmur Hepatitis C Hiatal hernia Kidney stone Left anterior knee pain Psychiatric care Scoliosis Urolithiasis Vaginal atrophy Surgical History History of appendectomy History of cholecystectomy History of esophagogastroduodenoscopy (EGD) 08/29/2016 History of hip replacement, total right History of hysterectomy Family History Mother , AT AGE 71 Cancer LUNG Father Diabetes CHF (congestive heart failure) Other Heart disease Psychiatric illness Social History Smoking and tobacco status: former smoker Quit status (tobacco): has quit using tobacco Second hand smoke exposure: No Alcohol intake: former Marital status: / Current occupational status: disabled History of recent travel: No Current gender identity: Female Vitals/I&O/Wt Last Vital Signs Temp 98.6 F 10/18/21 09:47 Pulse 84 10/18/21 09:47 Resp 18 10/18/21 09:47 BP 130/82 10/18/21 09:47 Pulse Ox 98 10/18/21 09:47 O2 Del Method 10/18/21 09:47 A&P Assessment and plan (1) Lumbar disc disease with radiculopathy: Patient had injection at L4-5 which gave her relief of her leg pain.? However she still had the back pain.? Patient states her back pain is worse than her leg pain.? She did have facet ablations which did relieve her back pain for couple hours.? At this point patient's failed conservative therapy pain is currently back.? Plan will be to do L3 to pelvis posterior spine fusion with a cage posterior lumbar interbody fusion at L5-S1 and decompression from L3 down to S1.? I had an open and honest discussion with the patient about the risks, benefits and alternatives to both surgical and nonsurgical treatment.? The patient verbalized understanding of the inherent unpredictability associated with surgery.? Risk of surgery were discussed including, but not limited to, infection, bleeding, temporary and permanent nerve damage, continued pain, stiffness, incomplete healing, need for revision surgery, blood clot and other complications.? The patient verbalized understanding that there is spine is elective in nature and if they find any of these risks to be unacceptable then they should choose not to have the surgery.? The patient verbalized understanding of these risks and elected to proceed with the surgery. Status: Acute (2) Lumbar stenosis with neurogenic claudication: Status: Acute Attestations Medical Necessity Statement*: post op Coding Level of Care Code Acute Cardiovascular Sonographer for Kierra Aguirre Diagnoses Lumbar disc disease with radiculopathy M51.16 Lumbar stenosis with neurogenic claudication M48.062
[2021-10-18] MEDS: ceFAZolin 2,000 MG in sodium chloride 0.9% (plus) 50 ML 100 MG IV ×2 (10:26→18:17)
--- NOTE | 2021-10-18 11:00 | PC.NURSE ---
CALLED AND UPDATED DAUGHTER ON PROCEDURE PROGRESS.
[2021-10-18] MEDS: vancomycin 1,000 MG SDV 1000 MG XX (11:07)
[2021-10-18] MEDS: heparin, porcine 1,000 unit/mL INJ 10 mL 10000 UNIT XX (11:08)
--- NOTE | 2021-10-18 12:29 | PC.NURSE ---
CALLED TO UPDATE DAUGHTER OF PROCEDURE PROGRESS.
--- NOTE | 2021-10-18 13:36 | PC.NURSE ---
CALLED DAUGHTER TO GIVE PROCEDURE PROGRESS UPDATE.
--- NOTE | 2021-10-18 14:48 | P.OP_ITS ---
Operative Report Date of procedure: October 18, 2021 Pre-op diagnosis: Preop Diagnosis Lumbar stenosis w/Neurogenic Claudication Post-op diagnosis: same Procedure done: 1. L5/S1 Interbody fusion with posterolateral fusion 2. Instrumentation L3 to S1 3. Lumbopelvic fixation 4. Posterior fusion L3 to Pelvis 5. Cage at L5/S1 6. Laminectomy L3/4 with partial facetectomies 7. Laminectomy L4/5 with partial facetectomies 8. Laminectomy L5/S1 with partial facetectomies 9. use of autograft from same incision 10. allograft 11. Bone marrow aspirate from right iliac crest 12. Use of computer navigation/stereotactic for spine Surgeon: Shubham Christianson Software Requirements Engineer: Joseluis Gongora Software Requirements Engineer: The security assistant, Joseluis Gongora, PAC was needed for his expertise under the microscope. He was important and necessary throughout the procedure to complete in a safe and timely manner. He assisted with patient positioning prepping and draping tissue retraction suctioning of the operative field protection of the dural sac and tissue closure Estimated blood loss (mL): 300 Procedure: 1. L5/S1 Interbody fusion with posterolateral fusion 2. Instrumentation L3 to S1 3. Lumbopelvic fixation 4. Posterior fusion L3 to Pelvis 5. Cage at L5/S1 6. Laminectomy L3/4 with partial facetectomies 7. Laminectomy L4/5 with partial facetectomies 8. Laminectomy L5/S1 with partial facetectomies 9. use of autograft from same incision 10. allograft 11. Bone marrow aspirate from right iliac crest 12. Use of computer navigation/stereotactic for spine Patient is brought to the operative suite. After undergoing anesthesia, the patient had neuro monitoring attached. Patient was then placed in the prone position on the Nigel table. All areas of impingement were well-padded. Patient was then prepped and draped in the normal sterile fashion. Skin incision was then made over the L3 to S1. Subperiosteal dissection was made out to the transverse processes of L3, L4 and L5 and S1 to the sacral ala. Attention was then brought to obtaining the bone marrow aspirate. The [employer] bone marrow aspirate kit was used to aspirate bone marrow aspirate from the right iliac crest. This was done by using the sharp probe to open up the bone. Aspiration was performed and then the blunt probe was then used to dissect down to through the bone tunnel. An aspirating well drawn back a millimeter approximately 20 cc of bone marrow aspirate was used. And mixed with the allograft and autograft bone that will be used. Next attention was brought to placing the pins into the right iliac crest. These 2 pins were drilled into the iliac crest sterilely removed at the end of the case. The fiducial was attached to this. The C-arm was then brought in and spun around the patient and the information from the C-arm was loaded in the computer and this was used later for computer navigation. The technique for placing the pedicle screws was to use a drill followed by the gearshift probe linked to the computer navigation. Followed by the ball probe to feel the superior inferior medial lateral altamirano of the pedicles. Then placement of the screws linked to computer navigation. Was done at each pedicle. Screws were placed at L3 bilaterally, L4 bilaterally, and L5 bilaterally, and S1. Next attention was brought to placing the iliac screws. This was done using the gearshift plain to the computer navigation starting the sacrum through the ala across the SI joint and into the iliac wing. This was done bilaterally. Once the gearshift was removed the pedicle feeler was used to ensure that the altamirano of the iliac crest were not breached. And then the large iliac screws proximally 80 mm in length were placed. Next attention was brought to performing the laminectomies. Laminectomy was done at L3-4. L3 laminectomy was performed with a high-speed bur and Kerrison rongeurs curettes. Ligamentum flavum was then taken down from L3-L4. The dura was identified. There was a small tear in the dura which was repaired with a Nurolon stitch. The L4 nerve transfer on the L4 pedicles bilaterally. In the L3at the L3-4 foramen failed to be adequately decompressed. Was brought to the L4-5 level high-speed bur and Kerrison rongeurs and curettes were used to take down the lamina laminectomies performed of L4 and then the L45 procedure was taken down using high-speed bur curved curettes and Kerrison rongeurs. The L4 nerve was traced out the L4-5 foramen bilaterally. The was decompressed as was the L5 root on the L5 pedicle. Next attention was brought to performing the laminectomy ofL5. This was done using the high-speed bur Kerrisons and curettes. Once the lamina was removed and then attention was brought to performing a partial facetectomy on the contralateral side. This was done again using the high-speed bur curettes and Kerrisons. The ligamentum flavum was taken down bilaterally from L5 to S1. Attention was then brought to the facet on the ipsilateral side. The facet was taken down. The S1 nerve was decompressed as it passed around the S1 pedicle. The laminectomy was done for purposes of decompressing the nerve as well as placement of the cage. The L5 nerve was identified as it traversed through the L5/S1 foramen. The thecal sac was identified and retracted. The L5/S1 disc base was identified. Using a knife the disc base was opened. And then sequential paco were placed. The first shaver was a 6 and the last shaver was a 8. Using a pituitary and down going curette the endplates were scraped an d disc material was removed from the space. Once adequate decompression of the disc base was felt to be had. Osteoamp sponge was packed into the anterior aspect of the disc base. Then a size 8 cage from [employer] was placed after packing osteoamp into the cage. While placing the cage the thecal sac and S1 nerve was protected. C arm was used to ensure that the cages placed in the appropriate position. Attention was then brought to attaching the rods to the screws placed in the L 3 bilaterally, L4 bilaterally, L5 bilaterally, S1 bilaterally and the iliac screws into the pelvis bilaterally. Caps were torqued into position. Locking the construct in place. Wound was copiously irrigated and then attention was brought to decorticating the facets and transverse processes laterally. Bone that was taken down from the lamina was used along with osteoamp fibers and sponges were packed into the lateral gutters along the facet joints. This was done bilaterally. Wound was then closed in a layered fashion starting with the thoracolumbar fascia. 0-vicryl was used the sub cutaneous tissue was closed with 2-0 vicryl and skin with 4-0 monocryl. Glue was then used to seal the skin and a steril dressing was applied. Patient was then placed in the supine position. The endotracheal tube was removed and patient was transferred to the PACU in stable condition.
[2021-10-18] MEDS: fentaNYL 50 mcg/mL INJ 2mL IVP ×2 (15:05→15:38)
[2021-10-18] MEDS: HYDROcodone-acetaminophen 5-325 mg Tablet PO ×2 (16:23→20:30)
--- NOTE | 2021-10-18 17:00 | ANE.PACU2 ---
Inpatient post-anesthesia follow up: Airway intact: Yes Vital signs: Temperature 100.0 F Pulse Rate 89 Respiratory Rate 22 Blood Pressure 132/78 Pulse Oximetry 94 Oxygen Delivery Me thod Room Air Oxygen Flow Rate 6 Fraction of Inspir ed Oxygen Hydration adequate: Yes Nausea and vomiting: No Pain level: 1 Mental status: Baseline
[2021-10-18] MEDS: buPROPion SR (12 HR) 150 mg Tablet PO (18:13)
[2021-10-18] MEDS: docusate sodium 100 mg Capsule PO (18:14)
[2021-10-18] MEDS: lamoTRIgine 100 mg Tablet 150 MG PO (18:14)
[2021-10-18] MEDS: acetaminophen 325 mg Tablet 650 MG PO (18:30)
[2021-10-18] MEDS: ondansetron 2 mg/ML SDV 2 mL 4 MG IVP (18:40)
--- NOTE | 2021-10-18 21:45 | PC.NURSE ---
Call placed to Dr. Christianson regarding patient's continued nausea after zofran was administered 3 hrs ago.Also relayed patient states hydrocodone has not been effective for her pain. Order received for phenergan and morphine as prn orders.
[2021-10-18] MEDS: promethazine 25 mg Tablet 12.5 MG PO (21:58)
[2021-10-18] MEDS: morphine 4 mg/mL SDV 1 mL IVP (22:38)
[2021-10-19] VITALS (13 sets, daily range): BP systolic 104–151; BP diastolic 62–77; PULSE 63–98; RESP 12–18; TEMP 36.8–37.3; O2SAT 96–99
[2021-10-19] MEDS: ondansetron 2 mg/ML SDV 2 mL 4 MG IVP ×3 (00:39→23:46)
[2021-10-19] MEDS: HYDROcodone-acetaminophen 5-325 mg Tablet PO ×5 (00:40→23:10)
[2021-10-19] MEDS: ceFAZolin 2,000 MG in sodium chloride 0.9% (plus) 50 ML 100 MG IV ×2 (03:35→09:38)
[2021-10-19] MEDS: promethazine 25 mg Tablet 12.5 MG PO ×3 (04:55→22:46)
[2021-10-19] MEDS: morphine 4 mg/mL SDV 1 mL IVP ×4 (07:34→23:51)
--- NOTE | 2021-10-19 08:01 | PM.PN ---
Subjective Subjective: POD 1 Patient resting comfortably. Reports back pain with some improvement of her leg pain. She denies any headaches, chest pain, shortness of breath. Vitals/I&O/Wt Last Vital Signs Temp 99 F 10/19/21 07:26 Pulse 68 10/19/21 07:45 Resp 16 10/19/21 07:45 BP 123/66 10/19/21 07:26 Pulse Ox 99 10/19/21 07:45 O2 Del Method 10/19/21 07:45 O2 Flow Rate 6 10/18/21 20:00 10/18/21 10/19/21 10/19/21 22:59 06:59 14:59 Intake Total 650 / 3050 240 / 3290 Output Total 965 / 1915 955 / 2870 60 / 60 Balance -315 / 1135 -715 / 420 -60 / -60 Weight last 48 hrs Weight 163 lb Physical Exam Narrative: Patient presents alert and oriented x3 with a good general appearance normal mood and affect. Normal coordination normal stability. Mild tenderness around the incisional site with the incision appear to be in and dry with Hemovac intact.. No signs of erythema or drainage. No signs of infection. Patient denies any fevers or chills. 5/5 motor strength both lower extremities with negative straight leg raise bilaterally. Calves are supple no medial thigh tenderness. Pulses are 2+ at the dorsalis pedis and posterior tibial region. Good capillary refill throughout normal sensation light touch both lower extremities. Urinary Catheter Management: Camarena: Cath Placed During This Visit: yes Reason for Continuing Indwelling Catheter: Accurate Measurement of Urinary Output in Critically Ill Patients Urinary Catheter Date of Insertion: 10/18/21 Urinary Catheter Time of Insertion: 10:40 A&P Assessment and plan (1) Status post lumbar spinal fusion: Status: Acute Plan Physical therapy to eval and treat. Discontinue Camarena catheter and Hemovac drain after physical therapy mobilizes. Continue incentive spirometry for pulmonary toilet. Plan for discharge home tomorrow. Attestations Medical Necessity Statement*: Plan for discharge home tomorrow Coding Level of Care Code Acute Blood Bank Technician for Kierra Aguirre Diagnoses Status post lumbar spinal fusion Z98.1
[2021-10-19] MEDS: buPROPion SR (12 HR) 150 mg Tablet PO ×2 (08:53→17:26)
[2021-10-19] MEDS: lamoTRIgine 100 mg Tablet 150 MG PO ×2 (08:53→17:26)
[2021-10-19] MEDS: cholecalciferol (vitamin D3) 1,000 unit Tablet 2000 UNIT PO (08:53)
[2021-10-19] MEDS: docusate sodium 100 mg Capsule PO ×2 (08:54→17:26)
[2021-10-19] MEDS: montelukast sodium 10 mg Tablet PO (08:54)
[2021-10-19] MEDS: cetirizine 10 mg Tablet PO (08:54)
[2021-10-19] MEDS: pantoprazole DR 40 mg Tablet PO (08:54)
[2021-10-20 03:22] VITALS: BP 132/78; PULSE 89; RESP 18; TEMP 37.8; O2SAT 94
[2021-10-20 05:16] VITALS: RESP 22
[2021-10-20] MEDS: morphine 4 mg/mL SDV 1 mL IVP (05:16)
[2021-10-20] MEDS: ondansetron 2 mg/ML SDV 2 mL 4 MG IVP (05:17)
--- NOTE | 2021-10-20 07:26 | P.PN_ITS ---
Subjective Subjective: POD 2 Patient resting comfortably. Reports numbness to the top of her left foot. Pain has improved. Denies any headaches, chest pain, shortness of breath. Vitals/I&O/Wt Last Vital Signs Temp 100.0 F H 10/20/21 03:22 Pulse 89 10/20/21 03:22 Resp 22 H 10/20/21 05:16 BP 132/78 10/20/21 03:22 Pulse Ox 94 10/20/21 03:22 O2 Del Method 10/20/21 03:22 O2 Flow Rate 6 10/19/21 20:00 10/19/21 10/20/21 10/20/21 22:59 06:59 14:59 Intake Total 720 / 1300 480 / 1780 Output Total 400 / 960 Balance 320 / 340 480 / 820 Weight last 48 hrs Weight 163 lb Physical Exam Narrative: Patient presents alert and oriented x3 with a good general appearance normal mood and affect. Normal coordination normal stability. Mild tenderness around the incisional site with the incision appear to be clean and dry. No signs of erythema or drainage. No signs of infection. Patient denies any fevers or chills. 5/5 motor strength both lower extremities with negative straight leg raise bilaterally. Calves are supple no medial thigh tenderness. Pulses are 2+ at the dorsalis pedis and posterior tibial region. Good capillary refill throughout normal sensation light touch both lower extremities. Urinary Catheter Management: Camarena: Cath Placed During This Visit: yes, but has since been removed by the nurse Reason for Continuing Indwelling Catheter: Decision to DC Catheter Urinary Catheter Date of Insertion: 10/18/21 Urinary Catheter Time of Insertion: 10:40 Date Urinary Catheter Removed: 10/19/21 Time Urinary Catheter Discontinued: 11:00 A&P Assessment and plan (1) Status post lumbar spinal fusion: Physical therapy to evaluate and mobilize. Change lumbar dressing and reapplya Silverlon dressing. Encourage continue SMI for pulmonary toilet at home. See her back in the office in 1 week's time. No bending lifting or twisting activities. Continue a walker with wheels for home. Patient will call if having problems. Status: Acute Attestations Medical Necessity Statement*: Home later today Coding Level of Care Code Acute Regeneration Operator for Kierra Fwd Diagnoses Status post lumbar spinal fusion Z98.1
--- NOTE | 2021-10-20 08:08 | PM.DCS ---
Discharge Providers Date of Admission: 10/18/21 14:22 Date of Discharge: October 20, 2021 Attending Provider at Admission: Shubham Christianson DO Attending Provider at Discharge: Shubham Christianson DO Primary Care Provider: Minnie Leal MD Diagnoses at Discharge Discharge Diagnosis (1) Status post lumbar spinal fusion: Status: Acute Reason for Visit Reason for Visit: l3 pelvic psf plif l5/s1 decom l3/s1 Hospital Course Hospital Course uneventful Physical Exam Urinary Catheter Management: Camarena: Cath Placed During This Visit: yes, but has since been removed by the nurse Reason for Continuing Indwelling Catheter: Decision to DC Catheter Urinary Catheter Date of Insertion: 10/18/21 Urinary Catheter Time of Insertion: 10:40 Date Urinary Catheter Removed: 10/19/21 Time Urinary Catheter Discontinued: 11:00 Discharge Data Studies Completed and Pending Completed Studies During Hospitalization Category Date Time Status XR lumbar spine 2-3V* [id number] Routine Exams 10/18/21 Completed Pending at discharge Category Date Time Status C-arm Fluoroscopy [id number] Routine Exams 10/18/21 09:32 Stop Req Radiology Impressions Lumbar Spine X-Ray 10/18/21 00:00 IMPRESSION: Lumbar spine in surgery as above. Laboratory Results Blood Type O Positive 10/18/21 10:04 Rho(D) Type Positive 10/18/21 10:04 Antibody Screen Negative 10/18/21 10:04 Vitals Last Vital Signs Temp 100.0 F H 10/20/21 03:22 Pulse 89 10/20/21 03:22 Resp 22 H 10/20/21 05:16 BP 132/78 10/20/21 03:22 Pulse Ox 94 10/20/21 03:22 O2 Del Method 10/20/21 03:22 O2 Flow Rate 6 10/19/21 20:00 Discharge Plan Discharge Patient Disposition: Home Condition: Stable Prescriptions: New hydrocodone-acetaminophen 5-325 mg Tablet 1 - 2 tab PO Q4H PRN (Reason: Moderate To Severe Pain) Qty: 40 0RF Continued cetirizine [Zyrtec] 10 mg tablet 10 mg PO DAILY 30 Days Qty: 30 5RF omeprazole 40 mg capsule,delayed release(DR/EC) 40 mg PO DAILY Qty: 30 4RF montelukast [Singulair] 10 mg tablet 10 mg PO DAILY Qty: 30 5RF bupropion HCl [Wellbutrin SR] 150 mg tablet sustained-release 12 hr 150 mg PO BID Qty: 60 2RF lamotrigine 150 mg tablet 150 mg PO BID Qty: 60 2RF albuterol sulfate [ProAir HFA] 90 mcg/actuation HFA aerosol inhaler 2 puff INHALATION Q6H PRN (Reason: shortness of breath or wheezing) Qty: 18 2RF naloxone 4 mg/actuation spray,non-aerosol 4 mg intranasal Q2M PRN (Reason: opioid overdose) Qty: 2 0RF Rx Instructions: spray 1 dose into ONE nostril; alternate nostrils w each dose until help arrives acetaminophen-codeine 300-60 mg tablet 1 tab PO Q8H Qty: 45 0RF Seroquel 100 mg Tablet 100 mg PO BEDTIME Vitamin D3 50 mcg (2,000 unit) Capsule 50 mcg PO DAILY Discharge Orders: Discharge Order (Routine); Ordered 10/20/21 Ordered By: Joseluis Gongora Other Ambulatory Orders: DME: Luke (Order) Location: None Selected Ordered By: Shubham Christianson Referrals: Shubham Christianson, DO [Physician] - (Please call Dr. Christianson's office to make a follow up appointment to be seen in 2 weeks.) Discharge Diet: Advance as tolerated Discharge Activity: Limit activity as instructed Patient Instructions: Hydrocodone/Acetaminophen (By mouth), Lumbar Spinal Fusion (GEN), Opioid Safety Activity Restrictions/Additional Instructions: Thank you for choosing [facility] for your care! The following is a list of instructions, from your provider, to follow upon your discharge to ensure you have the optimal recovery from your recent injury or surgery. Follow-up care is a dominique part of your treatment and safety. Be sure to make and go to all appointments and call your doctor if you are having problems. If you do not already have a follow-up appointment made, call Dr. Christianson's] office in the next 1-3 days to make follow up appointment for 1 weeks at [phone]. It is also a good idea to know your test results and keep a list of the medicines you take. Medications will be prescribed for you at your provider's discretion. These medications are to be used as instructed; if they are taken more often that prescribed they will not be refilled early and in most cases will not be refilled at all. > When a refill is needed, you should contact mirna jacome 2-3 business days before your prescription runs out. Medications will NOT be refilled by regional safety manager providers after hours! > Many pain medications contain Tylenol (Acetaminophen). Do not consume more than 4,000 mg of Tylenol per day in total with any combination of medications. > Pain medications can cause constipation. Please use an over the counter stool softener as directed, while taking pain medications. Consult your local pharmacist with questions or recommendations on stool softeners. If constipation persists, contact our office or your primary care provider. > While under our care, you are not to receive pain medications or other controlled substances from any other provider unless our office is notified and approves. Any attempts to do so will result in refusal to prescribe any further pain medications and possible dismissal from our practice. ? Walking is essential for the healing process after surgery. We would like you to slowly advance your walking. This should be done on relatively flat clear ground (inside or out) or can be done on a treadmill. Remember this goal does not have to happen all at once, slowly increase your distance and duration. This can be broken into more more than one walk per day as tolerated. Patients who walk as directed after surgery rarely require Physical Therapy. In the unlikely event this issue arises your provider will direct hospital staff to make the appropriate arrangements. ? No lifting over 5 pounds {a gallon of milk) or bending/twisting until further notice. Each of these activities places an unnecessary amount of stress onto the body and can impede the delicate healing process. > Instead of bending at the waist, keep your back straight and bend at the knees. > Instead of twisting your torso, keep your back straight and turn your entire body with your feet. ? You may sleep in any position which makes you comfortable. Many patients find comfort sleeping in a reclining chair. It is not abnormal to have difficulty sleeping for the first several weeks following your surgery. We recommend trying Benadry! or Tylenol PM as directed to help with your sleeping difficulties. Both medications are over the counter and available without prescription. ? NO SMOKING!!! Smoking dramatically increases the probability of developing postoperative wound infections. ? Common complaints after lumbar and/or thoracic spine surgery include, but are not limited to: numbness and/or tingling in the legs, pain around the incision and surrounding tissues, muscle spasms, or stiffness of the middle to low back. Contact our office if these symptoms persist or if an acute change occurs. ? No driving for the first 3-5days, and not while taking narcotics until seen at your follow-up appointment and cleared. There are no restrictions for riding on short trips, however if you take a longer trip, arrangements should be made to make regular stops to get out of the vehicle and stretch . ? Swelling is an unfortunate event that will take place with any surgery and is the primary source of your postoperative discomfort. While walking and regular approved activities helps control inflammation, there are additional steps you can take to minimize swelling. > Place ice over the surgical site and surrounding tissue for twenty minutes, followed by applying a low/medium heat (heating pad) for an additional twenty minutes every 1-2 hours as needed for painrelief. > You may use of over the counter anti-inflammatory medications (Ibuprofen, Motrin, Aleve, Advil, etc) as directed on the package label. These types of medicines will significantly reduce the amount of discomfort you experience after surgery from swelling. It should be noted that if you have and allergy to any of these medications, or a history of ulcers or kidney disease you should consult you primary care provider prior to starting these medications. Discharge Attestations Time Spent in Discharge Care*: less than 30 min Quality Metrics Clinical Quality Measures [ No reported AMI, CVA or VTE this stay] Coding Level of Care Code Acute Chg FW DC note Diagnoses Status post lumbar spinal fusion Z98.1
[2021-10-20] MEDS: cholecalciferol (vitamin D3) 1,000 unit Tablet 2000 UNIT PO (08:20)
[2021-10-20] MEDS: cetirizine 10 mg Tablet PO (08:20)
[2021-10-20] MEDS: montelukast sodium 10 mg Tablet PO (08:20)
[2021-10-20] MEDS: HYDROcodone-acetaminophen 5-325 mg Tablet PO ×2 (08:20→12:03)
[2021-10-20] MEDS: lamoTRIgine 100 mg Tablet 150 MG PO (08:20)
[2021-10-20] MEDS: pantoprazole DR 40 mg Tablet PO (08:21)
[2021-10-20] MEDS: buPROPion SR (12 HR) 150 mg Tablet PO (08:21)
[2021-10-20] MEDS: docusate sodium 100 mg Capsule PO (08:21)
[2021-10-20 08:45] VITALS: BP 129/73; PULSE 95; RESP 16; TEMP 37.1; O2SAT 95
== END 2021-10-20 12:59 | disposition home or self-care (01) | DRG 455 ==
LOC: MEDSURG 14:23
PROVIDERS: Admitting Provider Orthopaedic Surgery; PCP Family Medicine; Visit Provider Orthopaedic Surgery
PROC: 0SG107J Fusion of 2 or more Lumbar Vertebral Joints with Autologous Tissue Substitute, Posterior Approach, Anterior Column, Open Approach (ICD-10-PCS; CPT 22612; principal; 2021-10-18 11:00)
PROC: 0SG107J Fusion of 2 or more Lumbar Vertebral Joints with Autologous Tissue Substitute, Posterior Approach, Anterior Column, Open Approach (ICD-10-PCS; CPT 63005; 2021-10-18 11:00)
DX: M51.16 Intervertebral disc disorders with radiculopathy, lumbar region (principal); M48.062 Spinal stenosis, lumbar region with neurogenic claudication; N18.9 Chronic kidney disease, unspecified; K21.9 Gastro-esophageal reflux disease without esophagitis; Z86.19 Personal history of other infectious and parasitic diseases; Z87.891 Personal history of nicotine dependence; Z79.51 Long term (current) use of inhaled steroids
CPT/HCPCS: 36415; 51702; 72100; 76000; 86850; 86900; 97116; 97161; 97530; C1713; J0330; J1100; J1170; J1200; J1644; J2250; J2270; J2405; J2704; J2710; J3010; J3370; J3490; J7030; Q0169

== ENCOUNTER → 2021-10-31 12:58 | Outpatient (BNVA) | payer MEDICAID, SELFPAY | PROVIDERS: PCP Family Medicine; Visit Provider Orthopaedic Surgery | DX: Z47.89 Encounter for other orthopedic aftercare (principal); Z98.1 Arthrodesis status | CPT/HCPCS: 99024 ==

== ENCOUNTER → 2021-12-03 13:57 | Outpatient (BNVA) | payer MEDICAID, SELFPAY | PROVIDERS: PCP Family Medicine; Visit Provider Physician Assistant | DX: Z47.89 Encounter for other orthopedic aftercare (principal); Z98.1 Arthrodesis status | CPT/HCPCS: 72100; 99024; 99213 ==

== ENCOUNTER → 2022-01-14 13:09 | Outpatient (BNVA) | payer MEDICAID, SELFPAY | PROVIDERS: PCP Family Medicine; Visit Provider Physician Assistant | DX: Z47.89 Encounter for other orthopedic aftercare (principal); Z98.1 Arthrodesis status | CPT/HCPCS: 72100; 99024 ==

== ENCOUNTER → 2022-05-01 15:22 | Outpatient (BNVA) | payer MEDICAID, SELFPAY | PROVIDERS: PCP Family Medicine; Visit Provider Physician Assistant | DX: Z98.1 Arthrodesis status (principal); M54.50 Low back pain, unspecified | CPT/HCPCS: 72100; G0463 ==

== ENCOUNTER → 2022-08-12 17:57 | Outpatient (BNVA) | payer MEDICAID, SELFPAY | PROVIDERS: PCP Family Medicine; Visit Provider Nurse Practitioner Family | DX: J30.89 Other allergic rhinitis (principal); F17.210 Nicotine dependence, cigarettes, uncomplicated; R53.83 Other fatigue; Z13.6 Encounter for screening for cardiovascular disorders | CPT/HCPCS: 80053; 80061; 82306; 82607; 83735; 84443; 85025 ==

== ENCOUNTER 2022-08-25 13:53 | Outpatient (CLI) | payer MEDICAID, SELFPAY ==
--- NOTE | 2022-08-25 14:00 | CT_ITS ---
WS: [id number] LDCT LUNG CANCER SCREENING TECHNIQUE: Noncontrast CT of the chest with coronal and sagittal reformatted images. CLINICAL INFORMATION: F17.210 - Nicotine dependence, cigarettes, uncomplicated COMPARISON: None. DLP: 63.31 mGy.cm DIvol: Mean CTDIvol: 1.20 (mGy) All CT scans at [facility] use at least one of these dose optimization techniques: automat ed exposure control; mA and/or kV adjustment per patient size (includes targeted exams where dose is matched to clinical indication); or iterative reconstruction. FINDINGS:No acute pulmonary infiltrates. No pleural fluid. Mild thoracic curve. Tiny subpleural nodul e RIGHT middle lobe measuring 5 mm. Tiny pleural nodule LEFT fissure measuring 3 mm. Pleural-based no dularity RIGHT upper lobe largest measuring 9 mm. Additional smaller areas of pleural-based nodularit y LEFT upper lobe. Normal caliber thoracic aorta. Aortic calcification. No mediastinal or hilar lymphadenopathy. No axil bashir lymphadenopathy. Adrenal glands are normal. Cholecystectomy clips. Normal GE junction. CT/CT lung screening [id number] IMPRESSION: LUNG-RADS: 2-Benign Appearance or Behavior FOLLOW UP: 12 Month: Continue annual screening with LDCT
== END 2022-08-25 13:54 | disposition home or self-care (01) ==
LOC: RAD 13:55
PROVIDERS: PCP Family Medicine; Visit Provider Nurse Practitioner Family
DX: Z12.2 Encounter for screening for malignant neoplasm of respiratory organs (principal); F17.210 Nicotine dependence, cigarettes, uncomplicated
CPT/HCPCS: 71271

== ENCOUNTER 2022-08-28 12:42 | Outpatient (CLI) | payer MEDICAID, SELFPAY ==
--- NOTE | 2022-08-28 12:49 | MM_ITS ---
WS: [id number] BILATERAL SCREENING DIGITAL TOMOSYNTHESIS MAMMOGRAM WITH CAD HISTORY: Screening exam. COMPARISON: 12/29/2011 Bilateral CC and MLO views with tomosynthesis and synthetic mammography submitted. Computer aided det ection analyzed. Breast composition: There are scattered areas of fibroglandular density. No suspicious masses, microc alcifications or architectural distortion. MM/[place] [id number] IMPRESSION: BI-RADS: 1-Negative FOLLOW UP: 1 Year Follow-up
--- NOTE | 2022-08-28 13:30 | XR_ITS ---
WS: [id number] SCREENING DEXA SCAN [employer] CLINICAL INFORMATION: Z78.0 - Asymptomatic menopausal state COMPARISON: None. FINDINGS: Left femoral neck bone mineral density measures 0.957 (g/cm2). This corresponds to a T score of -0.4 (no units) and Z score of 0.0 (no units). LEFT forearm bone mineral density measures 0.899. This corresponds to a T score of 0.3 and Z score of 0.4. XR/XR DEXA axial skeleton* [id number] IMPRESSION: Normal bone mineralization LEFT femoral neck and LEFT forearm.. Patient's FRAX calculated 10 year probability for major osteoporotic fracture i s 9.3 % and osteoporotic hip fracture is 0.4%.
== END 2022-08-28 12:43 | disposition home or self-care (01) ==
LOC: RAD 12:44
PROVIDERS: PCP Family Medicine; Visit Provider Nurse Practitioner Family
DX: Z12.39 Encounter for other screening for malignant neoplasm of breast (principal); Z78.0 Asymptomatic menopausal state
CPT/HCPCS: 77063; 77067; 77080

== ENCOUNTER → 2022-10-21 14:18 | Outpatient (BNVA) | payer MEDICAID, SELFPAY | PROVIDERS: PCP Family Medicine; Visit Provider Internal Medicine Nephrology | DX: N18.32 Chronic kidney disease, stage 3b (principal) | CPT/HCPCS: 80069; 82043; 85025 ==

== ENCOUNTER → 2022-10-30 13:01 | Outpatient (BNVA) | payer MEDICAID, SELFPAY | PROVIDERS: PCP Family Medicine; Visit Provider Physician Assistant | DX: Z98.890 Other specified postprocedural states (principal); Z98.1 Arthrodesis status | CPT/HCPCS: 72100; 99213 ==

== ENCOUNTER → 2022-11-06 14:06 | Outpatient (BNVA) | payer MEDICAID, SELFPAY | PROVIDERS: PCP Family Medicine; Visit Provider Nurse Practitioner Family | DX: E87.6 Hypokalemia (principal) | CPT/HCPCS: 83735; 84133 ==

== ENCOUNTER → 2023-02-10 08:22 | Outpatient (BNVA) | payer MEDICAID, SELFPAY | PROVIDERS: PCP Family Medicine; Referring Provider Registered Nurse; Visit Provider Internal Medicine | DX: E87.6 Hypokalemia (principal); R63.1 Polydipsia | CPT/HCPCS: 99204 ==

== ENCOUNTER → 2023-03-05 13:48 | Outpatient (BNVA) | payer MEDICAID, SELFPAY | PROVIDERS: PCP Family Medicine; Visit Provider Family Medicine | DX: N18.9 Chronic kidney disease, unspecified (principal) | CPT/HCPCS: 80069; 82043 ==

== ENCOUNTER → 2023-04-24 13:02 | Outpatient (BNVA) | payer MEDICAID, SELFPAY | PROVIDERS: PCP Family Medicine; Visit Provider Internal Medicine | DX: E87.6 Hypokalemia (principal); R63.1 Polydipsia; Z79.899 Other long term (current) drug therapy | CPT/HCPCS: 81003; 82436; 82570; 83935; 84133; 84300; 84540 ==

== ENCOUNTER → 2023-04-29 11:13 | Outpatient (BNVA) | payer MEDICAID, SELFPAY | PROVIDERS: PCP Family Medicine; Visit Provider Internal Medicine | DX: E87.6 Hypokalemia (principal); R63.1 Polydipsia | CPT/HCPCS: 36415; 80053; 99214 ==

== ENCOUNTER → 2023-05-11 10:50 | Outpatient (BNVA) | payer MEDICAID, SELFPAY | PROVIDERS: PCP Family Medicine; Visit Provider Nurse Practitioner Family | DX: J30.89 Other allergic rhinitis (principal); K21.9 Gastro-esophageal reflux disease without esophagitis; N18.32 Chronic kidney disease, stage 3b; Z13.6 Encounter for screening for cardiovascular disorders; N63.21 Unspecified lump in the left breast, upper outer quadrant | CPT/HCPCS: 80053; 80061; 85025 ==

== ENCOUNTER 2023-05-25 10:32 | Outpatient (CLI) | payer MEDICAID, SELFPAY ==
--- NOTE | 2023-05-25 10:38 | US_ITS ---
WS: [id number] DIAGNOSTIC LEFT DIGITAL TOMOSYNTHESIS MAMMOGRAPHY WITH CAD. LEFT breast ultrasound, limited HISTORY: N63.20 - Unspecified lump in the left breast, unspecified... COMPARISON: 08/28/2022, 12/29/2011 Technique: CC, MLO and ML views. Spot compression LEFT MLO and CC. Breast composition: There are scattered areas of fibroglandular density. Very dense fibroglandular br east tissue in the upper outer quadrant of the LEFT breast. This is the site of the palpable abnormal ity. The breast does appear more dense than on the prior study. There is no distortion or mass identi fied. Ultrasound will be obtained also. LEFT breast ultrasound, limited. Ultrasound directed along the 2:00 axis of the LEFT breast as directed by the patient. There is no ma ss identified. No shadowing. No cyst. IMPRESSION: US/US breast LT limited* [id number] BI-RADS: 2-Benign FOLLOW UP: 1 Year Follow-up LACK OF RADIOGRAPHIC EVIDENCE OF MALIGNANCY SHOULD NOT DELAY BIOPSY IF A CLINIC ALLY SUSPICIOUS MASS IS PRESENT.
--- NOTE | 2023-05-25 11:00 | MM_ITS ---
WS: [id number]NOST[facility] LEFT DIGITAL TOMOSYNTHESIS MAMMOGRAPHY WITH CAD. LEFT breast ultrasound, limited HISTORY: N63.20 - Unspecified lump in the left breast, unspecified... COMPARISON: 08/28/2022, 12/29/2011 Technique: CC, MLO and ML views. Spot compression LEFT MLO and CC. Breast composition: There are scattered areas of fibroglandular density. Very dense fibroglandular br east tissue in the upper outer quadrant of the LEFT breast. This is the site of the palpable abnormal ity. The breast does appear more dense than on the prior study. There is no distortion or mass identi fied. Ultrasound will be obtained also. LEFT breast ultrasound, limited. Ultrasound directed along the 2:00 axis of the LEFT breast as directed by the patient. There is no ma ss identified. No shadowing. No cyst. IMPRESSION: MM/[place] [id number] BI-RADS: 2-Benign FOLLOW UP: 1 Year Follow-up LACK OF RADIOGRAPHIC EVIDENCE OF MALIGNANCY SHOULD NOT DELAY BIOPSY IF A CLINIC ALLY SUSPICIOUS MASS IS PRESENT.
== END 2023-05-25 10:33 | disposition home or self-care (01) ==
LOC: RAD 10:33
PROVIDERS: PCP Family Medicine; Visit Provider Nurse Practitioner Family
DX: N63.21 Unspecified lump in the left breast, upper outer quadrant (principal)
CPT/HCPCS: 76642; 77061; 80053; 80061; 85025; G0279

== ENCOUNTER → 2023-06-18 15:04 | Outpatient (BNVA) | payer MEDICAID, SELFPAY | PROVIDERS: PCP Family Medicine; Visit Provider Registered Nurse | DX: N18.32 Chronic kidney disease, stage 3b (principal) | CPT/HCPCS: 80069; 82043; 82306; 82310; 83970; 85025 ==

== ENCOUNTER → 2023-06-30 15:39 | Outpatient (BNVA) | payer MEDICAID, SELFPAY | PROVIDERS: PCP Family Medicine; Visit Provider Orthopaedic Surgery | DX: Z98.1 Arthrodesis status (principal) | CPT/HCPCS: 72110; 99213 ==

== ENCOUNTER → 2024-10-07 11:34 | Outpatient (BNVA) | payer MEDICAID, SELFPAY | PROVIDERS: Visit Provider Nurse Practitioner Family | DX: N18.32 Chronic kidney disease, stage 3b (principal); E78.5 Hyperlipidemia, unspecified; Z12.39 Encounter for other screening for malignant neoplasm of breast; J30.89 Other allergic rhinitis; N18.9 Chronic kidney disease, unspecified | CPT/HCPCS: 80053; 80061; 82306; 84443; 85025 ==

== ENCOUNTER → 2024-11-28 13:01 | Outpatient (BNVA) | payer MEDICAID, SELFPAY | PROVIDERS: PCP Nurse Practitioner Family; Visit Provider Nurse Practitioner Family | DX: N18.9 Chronic kidney disease, unspecified (principal) | CPT/HCPCS: 80053; 82043; 82310; 83970; 85025 ==

== ENCOUNTER → 2025-02-21 13:08 | Outpatient (BNVA) | payer OTHER, SELFPAY | PROVIDERS: PCP Nurse Practitioner Family; Visit Provider Nurse Practitioner Psychiatric/Mental Health | DX: F33.2 Major depressive disorder, recurrent severe without psychotic features (principal); F43.12 Post-traumatic stress disorder, chronic | CPT/HCPCS: 83036 ==